=== PATIENT | female | born 1960 | race Caucasian/White ===

== ENCOUNTER 2019-09-14 08:55 | Outpatient (CLI) | payer OTHER ==
[~2019-09-14] VITALS: Ht 170.2 cm; Wt 64.5 kg
--- NOTE | ~2019-09-14 | OP ---
PATIENT NAME: ANITA CARRILLO MEDICAL RECORD: [id number] :56 LOCATION:D.CAT ADMISSION DATE: SURGEON: TAYLOR HERZOG MD DATE OF OPERATION: 09/14/2019 PROCEDURES: 1. Left heart catheterization. 2. Selective coronary angiography. 3. Left ventriculogram. INDICATION: Angina, abnormal nuclear stress test. PROCEDURE IN DETAIL: After informed consent was obtained and after a detailed description of the risks, benefits as well as alternative therapies, the patient elected to proceed with angiogram and heart catheterization. The right radial area was prepped and draped in normal sterile fashion. Right radial artery was cannulated via modified Seldinger technique with placement of 6-Burundian sheath. All catheters exchanged through this sheath. FINDINGS: Left ventriculogram was performed in standard 30-degree RAY view, reveals good cardiac wall motion, ejection fraction estimated 60%. SELECTIVE CORONARY ANGIOGRAPHY: Left main, left anterior descending, left circumflex, right coronary artery are smooth-walled vessels with no angiographic evidence of coronary artery disease. OVERALL IMPRESSION: 1. No angiographic evidence of coronary artery disease. 2. Normal left heart pressures. 3. Normal left ventricular systolic function. Chest pain is noncardiac in etiology. No further cardiac workup needs to be ascertained. TRANSINT:[id number] Voice Confirmation ID: [id number] DOCUMENT ID: [id number] TAYLOR HERZOG MD CC: [id number] DICTATION DATE: 09/14/19 1109 [facility] OF WOMEN: 09/14/19 1727 DEP CLI 09/14/19 [facility] [address] [place] [address]
--- NOTE | ~2019-09-14 | HEMODYNAMI ---
PATIENT:ANITA CARRILLO MEDICAL RECORD: [id number] : 56 LOCATION:[facility] ADMISSION DATE: 09/14/19 Generatedon:09/14/201911:10 Patient name: ANITA CARRILLO Patient #: [id number] SSN: : 1960 Date of study: 09/14/2019 Page: Of Hemodynamic Procedure Report Patient Data Patient Demographics Procedure consent was obtained First Name: ANITA Gender: Female Last Name: LORENA : 1960 Patient #: [id number] Age: 59 year(s) Race: Unknown Additional ID: [id number] Contact details [address]: [address] [place] [address] State: [place] City: [place] Zip code: [address] Past Medical History Allergies Allergen Reaction Date Comments Reported Other allergy 09/14/2019 Statins, morphine, bactrim Admission Admission Data Admission Date: 09/14/2019 Admission Time: 8:55 Arrival Date: 09/14/2019 Arrival Time: 0:00 Admit Source: Other Insurance Payor: Private health insurance Height (in.): 67 Height (cm.): 170.18 Lab Results Lab Result Date: 09/14/2019 Lab Result Time: 0:00 Biochemistry Name Units Result Min Max BUN mg/dl 15 --(--*-)-- 7 18 Creatinine mg/dl 0.8 --(-*--)-- 0.6 1.3 CBC Name Units Result Min Max Hemoglobin g/dl 14.8 --(-*--)-- 13.5 17.5 Procedure Procedure Types Cath Procedure Diagnostic Procedure C [facility] w/Coronaries Sedation Charges Moderate Sedation up to 15 minutes Procedure Description Procedure Date Procedure Date: 09/14/2019 Procedure Start Time: 10:59 Procedure End Time: 11:08 Procedure Staff Name Function Adan Srivastava MD Performing Physician Hattie Swain RT Monitor Elena Kirk RT Scrub Keesha Davison RN Nurse Indication Dyspnea Angina Procedure Data Cath Procedure Fluoroscopy Diagnostic fluoroscopy Total fluoroscopy Time: 1.8 time: 1.8 min min Diagnostic fluoroscopy Total fluoroscopy dose: dose: 59.98 mGy 59.98 mGy Contrast Material Contrast Material Type Amount (ml) Isovue 370 0 Entry Location Entry Primary Successful Side Size Upsize Upsize Entry Closure Russell ccessful Closure Location (Fr) 1 (Fr) 2 (Fr) Remarks Device Remarks Radial Right 6 Fr Mechanical artery Short Compression Estimated blood loss: 5 ml Diagnostic catheters Device Type Used For End Catheter Placement DIAGNOSTIC Shelley 110cm 5 Procedure Fr catheter ([id number]) DIAGNOSTIC AR2 MOD 5 Fr Procedure catheter ([id number]) Procedure Complications No complications Procedure Medications Medication Administration Route Dosage 0.9% NaCl I.V. 100 ml/hr Oxygen etCO2 Nasal cannula 2 l/min Lidocaine 2% added to field 20 Heparin Flush Bag added to field 2 bags (1000units/500ml NS) Radial Cocktail added to field 1 syringe (Verapamil 2mg/Nitro 400mcg/Heparin 1500units) Versed I.V. 2 mg Fentanyl I.V. 50 mcg Versed I.V. 1 mg Fentanyl I.V. 50 mcg Hemodynamics Rest HGB: 14.8 (g/dl) Heart Rate: 70 (bpm) Snapshots Pre Cath Intra NCS Post Cath Vital Signs Time Heart Resp SPO2 etCO2 NIBP (mmHg) Rhythm Pain Sedation Rate (ipm) (%) (mmHg) Status Level (bpm) 10:39:32 68 29 99 34.4 126/76(90) NSR 0 (11) 10(A) , No pain 10:43:44 77 13 97 42.8 123/67(100) NSR 0 (11) 10(A) , No pain 10:47:56 80 13 98 40.5 124/65(96) NSR 0 (11) 10(A) , No pain 10:52:08 80 13 98 28.2 125/66(94) NSR 0 (11) 10(A) , No pain 10:56:22 78 12 97 39 126/59(87) NSR 0 (11) 10(A) , No pain 11:00:32 85 10 98 18.3 131/69(105) NSR 0 (11) 10(A) , No pain 11:05:31 89 12 97 39.7 Measuring NSR 0 (11) 10(A) , No pain 11:05:45 91 13 96 39.7 118/58(91) NSR 0 (11) 10(A) , No pain Medications Time Medication Route Dose Verified Delivered Reason Notes E ffectiveness by by 10:38:28 0.9% NaCl I.V. 100 Adan Keesha used for ml/hr Atif Davison venetian blind machine operator 10:38:34 Oxygen etCO2 2 l/min Adan Keesha used for Nasal Atif Davison procedure cannula RN 10:38:39 Lidocaine 2% added 20ml Adan Adan for local to vial Atif Srivastava MD anesthetic field 10:38:43 Heparin Flush added 2 bags Adan Adan used for Bag to Atif Srivastava MD procedure (1000units/500ml field NS) 10:38:48 Radial Cocktail added 1 Adan Adan used for (Verapamil to syringe Atif Srivastava MD procedure 2mg/Nitro field 400mcg/Heparin 1500units) 10:53:23 Versed I.V. 2 mg Adan Keesha for Atif Davison sedation RN 10:53:36 Fentanyl I.V. 50 mcg Adan Keesha for Atif Davison sedation RN 10:59:01 Fentanyl I.V. 50 mcg Adan Keesha for Atif Davison sedation RN 10:59:49 Versed I.V. 1 mg Adan Keesha for Atif Davison sedation health services administrator Log Time Note 10:20:26 Hattie RICHARDSON(R) sent for patient. Start room use. 10:27:01 Informed consent obtained and on chart 10:27:24 Procedure Status Elective Heart Cath (OP). 10:27:31 Time tracking: Regular hours (M-F 7:00 - 5:00) 10:27:34 Plan of Care:Hemodynamics will remain stable., Cardiac rhythm will remain stable., Comfort level will be maintained., Respiratory function will remain adequate., Patient/ family verbilizes understanding of procedure., Procedure tolerated without complication., Recovers from procedure without complications.. 10:29:43 H&P Date Dictated: 09/01/2019 Within 30 days and on chart., H&P Addendum completed by physician on day of procedure. (MUST COMPLETE FOR ALL OUTPATIENTS). 10:30:03 Patient received from Pre/Post Procedure Room to CCL 3 Alert and oriented. Tansferred to table in Supine position. 10:30:04 Warm blankets applied, and dominique hugger turned on for patient comfort. 10:30:04 Correct patient and procedure confirmed by team. 10:30:05 ECG and BP/O2 sat monitors applied to patient. 10:38:20 Vital chart was started 10:38:28 0.9% NaCl 100 ml/hr I.V. was administered by Keesha Davison RN; used for procedure; Verbal order read back and verified. 10:38:34 Oxygen 2 l/min etCO2 Nasal cannula was administered by Keesha Davison RN; used for procedure; Verbal order read back and verified. 10:38:39 Lidocaine 2% 20ml vial added to field was administered by Adan Srivastava MD; for local anesthetic; Verbal order read back and verified. 10:38:43 Heparin Flush Bag (1000units/500ml NS) 2 bags added to field was administered by Adan Srivastava MD; used for procedure; Verbal order read back and verified. 10:38:48 Radial Cocktail (Verapamil 2mg/Nitro 400mcg/Heparin 1500units) 1 syringe added to field was administered by Adan Srivastava MD; used for procedure; Verbal order read back and verified. 10:39:10 Baseline sample Acquired. 10:39:14 Rhythm: sinus rhythm 10:39:16 Full Disclosure recording started 10:39:16 Pre-procedure instructions explained to patient. 10:39:18 Family in waiting room. 10:39:21 Patient NPO since Midnight. 10:39:47 Patient allergic to Other allergyStatins, morphine, bactrim 10:39:52 Is the patient allergic to Iodine/contrast media? No. 10:39:53 Was the patient premedicated? Yes 10:39:58 Is patient on blood thinner?No 10:40:01 Patient diabetic? No. 10:40:06 Snore? Yes 10:40:08 Sleep apnea? No 10:40:15 Patient pain scale 0/10 ?. 10:40:21 IV patent on arrival in left forearm with 0.9% NaCl at [facility]. 10:40:25 Lab results completed and on chart. 10:40:53 Lab Result : BUN 15 mg/dl 10:40:53 Lab Result : Creatinine 0.8 mg/dl 10:40:53 Lab Result : Hemoglobin 14.8 g/dl 10:41:25 Stress Test: yes; abnormal multi 10:41:29 Right Radial & Right Groin area was prepped with chlora-prep and draped in sterile fashion 10:41:31 Alarms reviewed by R. N. 10:41:31 Sharps counted by scrub and verified by R.N. 10:41:41 2) 60-89 Mildly reduced kidney function, and other findings (as for stage 1) point to kidney disease. 10:42:50 Maximum allowable contrast dose (3.7 X eGFR X 0.75)213 ml. 10:43:56 Risk of Mortality: .1 10:43:59 Risk of blood transfusion: .1 10:44:02 Risk of CAROL: .4 10:45:08 Arrival Date: 09/14/2019 12:00:00 AM 10:45:11 Admit Source: Other 10:45:16 Insurance Payor : Private health insurance 10:45:24 Patient Height : 67 inches 10:45:47 Diagnostic Cath Status : Elective 10:45:54 Indication : Dyspnea 10:46:03 Indication : Angina 10:47:21 Zero performed for pressure channel P1 10:47:25 Zero performed for pressure channel P1 10:52:04 Physician arrived 10:52:05 --------ALL STOP TIME OUT------ 10:52:05 Final Timeout: patient, procedure, and site verified with staff and physician. All members of the team are in agreement. 10:52:08 Right Radial & Right Groin site verified by team. 10:52:13 Fire Safety Assessment: A--An alcohol-based skin anteseptic being used preoperatively., C--Open oxygen or nitrous oxide is being used., D--An ESU, laser, or fiber-optic light is being used. 10:52:19 Physical assessment completed. ASA score P 2 - A patient with mild systemic disease as per Adan Srivastava MD. 10:52:25 Sedation plan: IV Moderate Sedation Medication:Versed, Fentanyl 10:52:30 Use device set Radial Dx or PCI 10:52:51 ACIST Syringe (61655) opened to sterile field. 10:53:03 Medline Cath Pack ([id number]) opened to sterile field. 10:53:04 Bag Decanter (2001S) opened to sterile field. 10:53:04 ACIST Hand Control (87999) opened to sterile field. 10:53:05 ACIST Manifold (69605) opened to sterile field. 10:53:12 Tegaderm 4 x 4 (1626W) opened to sterile field. 10:53:12 MBrace Wrist Support ([id number]) opened to sterile field. 10:53:16 EMERALD Guide Wire (054-081) opened to sterile field. 10:53:19 SHEATH 6FR RAIN (7466649) opened to sterile field. 10:53:23 Versed 2 mg I.V. was administered by Keesha Davison RN; for sedation; Verbal order read back and verified. 10:53:36 Fentanyl 50 mcg I.V. was administered by Keesha Davison RN; for sedation; Verbal order read back and verified. 10:58:42 Procedure started. 10:59:01 Fentanyl 50 mcg I.V. was administered by Keesha Davison RN; for sedation; Verbal order read back and verified. 10:59:27 Local anesthetic to right radial artery with Lidocaine 2% by Adan Srivastava MD.INITIAL ACCESS ONLY 10:59:42 A 6 Fr Short sheath was inserted into the Right Radial artery 10:59:49 Versed 1 mg I.V. was administered by Keesha Davison RN; for sedation; Verbal order read back and verified. 11:00:36 A DIAGNOSTIC Shelley 110cm 5 Fr catheter (166543) was advanced over the wire and used for Procedure. 11:01:18 LV angiography performed. 11:01:49 LV gram done using RAY 11:02:03 EF : 60 % 11:02:06 LCA angiography performed. 11:04:38 Catheter removed. 11:04:54 A DIAGNOSTIC AR2 MOD 5 Fr catheter ([id number]) was advanced over the wire and used for Procedure. 11:05:00 RCA angiography performed. 11:05:10 ZEPHYR REGULAR TR BAND (641074) opened to sterile field. 11:05:23 Catheter removed. 11:05:41 Sheath removed intact; hemostasis achieved with Mechanical Compression to the Right Radial artery. 11:05:43 Procedure ended.(Physican Out) 11:05:57 Fluoroscopy time 01.80 minutes. 11:06:04 Fluoroscopy dose: 59.98 mGy 11:06:04 Flurop Dose total: 59.98 11:06:12 Dose Area Product 431 mGy/cm. 11:06:21 Contrast amount:Isovue 370 0ml. 11:06:36 Maximum allowable dose exceeded? No. 11:06:37 Sharps counted by scrub and verified by R.N. 11:06:40 Insertion/operative site no bleeding no hematoma. 11:06:52 Post Procedure Pulses reassessed and unchanged 11:06:56 Post-procedure physical assessment completed. ASA score P 2 - A patient with mild systemic disease as per Adan Srivastava MD. 11:07:05 Post procedure rhythm: unchanged. 11:07:09 Estimated blood loss: 5 ml 11:07:13 Post procedure instruction explained to patient.Patient verbalizes understanding. 11:07:33 Procedure type changed to Cath procedure, Diagnostic procedure, LHC, C w/Coronaries, Sedation Charges, Moderate Sedation up to 15 minutes 11:07:41 Procedure and supply charges have been captured, reviewed, submitted and are correct. 11:08:02 Procedure Complication : No complications 11:08:06 Vital chart was stopped 11:08:08 [facility] Findings: mild to moderate CAD (<70%) 11:08:09 See physician's report for complete and final results. 11:08:13 Report given to Pre/Post Procedure Room. 11:08:16 Patient transfered to Pre/Post Procedure Room with Stretcher. 11:08:20 Procedure ended. 11:08:20 Full Disclosure recording stopped 11:08:23 End room use (Document Last) 11:09:22 End room use (Document Last) 11:09:52 End room use (Document Last) Device Usage Item Name Manufacture Quantity Catalog Hospital Part Current Minima l Lot# / Number Charge Number Stock Stock Serial# Code ACIST Acist 1 43376 [id number] 350653 [id number] 20 Syringe Medical (41167) Systems Inc Medline Medline 1 [id number] 866605 22804 185349 5 Cath Pack ([id number]) Bag Microtek 1 765026 22553 424675 5 Decanter Medical Inc. () ACIST Hand Acist 1 23696 707904 386363 707017 5 Control Medical (05637) Systems Inc ACIST Acist 1 45120 418782 284026 184055 5 Manifold Medical (19732) Systems Inc Tegaderm 4 3M 1 1626W 112188 807820 441484 5 x 4 (1626W) MBrace Advanced 1 [id number] 206368 36505 521498 5 Wrist Vascular Support Dynamics ([id number]) EMERALD Cardinal 1 502-455 709481 379150 799246 5 Guide Wire Health (502455) SHEATH 6FR Cardinal 1 [id number] 010299 [id number] 986654 5 [facility] ([id number]) DIAGNOSTIC Terumo 1 40-5013 506128 759543 407705 5 Shelley 110cm 5 Fr catheter (492639) DIAGNOSTIC Cardinal 1 [id number] 933900 518398 691051 20 AR2 MOD 5 Health Fr catheter (470763P) ZEPHYR Cardinal 1 623824 673859 2981260 494394 5 REGULAR TR Health BAND (146584) Signature Audit Blanch Stage Time Signature Unsigned Intra-Procedure 09/14/2019 Hattie Swain 11:09:22 AM RT(R) Intra-Procedure 09/14/2019 Keesha Davison 11:09:52 AM RN Intra-Procedure 09/14/2019 Adan Srivastava 11:10:12 AM [facility] [address] [place] [address]
[2019-09-14] MEDS ORDERED: OMEPRAZOLE40 MG PO (09:22)
[2019-09-14] MEDS ORDERED: CARAFATE1 G PO (09:22)
[2019-09-14] MEDS ORDERED: SLOW NIACIN PO (09:22)
[2019-09-14] MEDS ORDERED: VITAMIN D31000 UNIT PO (09:23)
[2019-09-14 09:43] LABS: BASOPHILS 0.6 % (0-2); EOSINOPHILS 1.6 % (0-7); HEMATOCRIT 44.8 % (36.0-48.0); HEMOGLOBIN 14.8 g/dL (12-16); IMMATURE GRANULOCYTES 0.1 % (0-5); LYMPHOCYTES 22.6 % (15-50); MCH 31.5 pg (26.0-34.0); MCV 95.3 fL (80.0-100.0); MEAN PLATELET VOLUME 10.9 fL (7.4-10.4); MONOCYTES 7.5 % (2-11); NEUTROPHILS 67.6 % (40-80); PLATELET COUNT 259 10x3/uL (130-400); RDW 12.6 % (11.5-14.5); WBC 6.7 10x3/uL (4.8-10.8)
[2019-09-14 09:49] VITALS: BP 127/66; Ht 170.2 cm; Wt 64.5 kg
[2019-09-14 10:05] LABS: ALT (SGPT) 26 U/L (10-68); CALC OSMOLALITY 278 mosm/kg (275-300); CALCIUM 9.1 mg/dL (8.5-10.1); CARBON DIOXIDE 31.6 mmol/L (21.0-32.0); CHLORIDE - SERUM 101 mmol/L (98-107); CHOL - HDL RATIO 3.8 ratio (2.3-4.1); CHOLESTEROL, TOTAL 239 mg/dL (0-200); CREATININE - SERUM 0.8 mg/dL (0.6-1.3); GLUCOSE 94 mg/dL (74-106); HDL CHOLESTEROL 63 mg/dL (32-96); LDL CHOLESTEROL 149 mg/dL (0-100); LDL-HDL RATIO 2.4 ratio (1.5-3.5); POTASSIUM - SERUM 4.1 mmol/L (3.5-5.1); SODIUM 139 mmol/L (136-145); TRIGLYCERIDE 136 mg/dL (30-200); UREA NITROGEN 15 mg/dL (7-18); eGFR NON AFRICAN AMERICAN 77 mL/min (90-120)
--- NOTE | 2019-09-14 11:18 | NUR ---
PT RECEIVED VIA STRETCHER FROM PARADI OPERATOR FOR RECOVERY. PT SLEEPING BUT AROUSES TO VERBAL STIMULI. PT DENIES PAIN OR DISCOMFORT. ZYPHER BAND AND IMMOBILIZER IN PLCE TO R WRIST, DRESSING CDI NO BLEEDING OR S/S HEMATOMA NOTED. ARM PINK AND WARM, CAP REFILL BRISK. PT PLACED ON CARDIAC MONITORS AND O2 VIA NC AT 2L. HR NSR RATE 75, BP 107/61, RR 14, SAT 100. PT INSTRUCTED NOT TO USE R ARM, SHE VERBALIZED UNDERSTANDING. IV PATENT INFUSING VIA ORDERS. CALL LIGHT IN REACH, AT BEDSIDE.
--- NOTE | 2019-09-14 11:46 | NUR ---
PT RESTING W/O COMPLAINTS. ZBAND AND IMMOBILIZER IN PLACE, DRESSING CDI NO BLEEDING OR S/S HEMATOMA NOTED. VSS CALL LIGHT IN REACH. AT BS
--- NOTE | 2019-09-14 11:55 | NUR ---
DR HERZOG AT , TALKED W PT AND REGARDING PLAN OF CARE AND PROCEDURE RESULTS.
--- NOTE | 2019-09-14 12:10 | NUR ---
5CC AIR REMOVED FROM Z BAND W/O BLEEDING OR S/S HEMATOMA NOTED. CAP REFILL BRISK. VSS. HOB ELEVATED, SANDWICH TRAY SERVED. O2 REMOVED, SAT 99 ON RA. CALL LIGHT IN REACH
--- NOTE | 2019-09-14 12:32 | NUR ---
PT SITTING UP IN BED, DENIES PAIN OR NEEDS. 2 ADD'L CC AIR REMOVED FROM Z BAND, NO BLEEDING OR S/S HEMATOMA NOTED. CAP REFILL BRISK. PT TOLERATED SANDWICH W/O NAUSEA. CALL LIGHT IN REACH.
--- NOTE | 2019-09-14 13:00 | NUR ---
REMAINING AIR REMOVED FROM Z BAND, NO BLEEDING OR S/S HEMATOMA. DISCHARGE INSTRUCTIONS REVIEWED W PT, SHE VERBALIZED UNDERSTANDING. IV REMOVED W CATH INTACT. MONITORS REMOVED AND PT UP TO DRESS FOR DISCHARGE.
--- NOTE | 2019-09-14 13:18 | NUR ---
PT TO BR VIA WC, VOIDING W/O DIFFICULITY. PT THEN DISCHARGED TO WAITING IN PRIVATE VEHICLE. PT HAD ALL BELONGINGS AND DISCHARGE INSTRUCTIONS
== END 2019-09-14 13:15 | disposition home or self-care (01) ==
LOC: D.CATH 08:55
PROVIDERS: ATTEND Internal Medicine Interventional Cardiology
DX: I20.9 Angina pectoris, unspecified (principal); R94.39 Abnormal result of other cardiovascular function study; E78.5 Hyperlipidemia, unspecified; R07.9 Chest pain, unspecified; R06.09 Other forms of dyspnea